=== PATIENT | male | born 1980 | race Caucasian/White ===

== ENCOUNTER 2020-06-19 19:32 | Emergency (ER) | payer SELFPAY ==
[2020-06-19 19:50] VITALS: BP 104/67
--- NOTE | 2020-06-19 20:54 | ER Document Report ---
ED Medical Screen (RME) - General Chief Complaint: Medical Complaint Stated Complaint: ALLERGIC REACTION TO ANTIBIOTIC/EAR SWELLING Time Seen by Provider: 06/19/20 20:43 Mode of Arrival: Ambulatory Information source: Patient Notes: 39-year-old male presents to ED for swelling right ear. He states that he had an allergic reaction to doxycycline for years ago and somebody is been him doxycycline so now he has a swollen right ear. He states he goes up to his service to get into his ear and makes his ear swollen. He does have right swollen external ear. He states he did have a medical history of a fractured left leg with surgery where they removed the patella and appendectomy. He states he smokes a half a pack a day drinks once a month and does occasionally smoke marijuana. I have greeted and performed a rapid initial assessment of this patient. A comprehensive ED assessment and evaluation of the patient, analysis of test results and completion of medical decision making process will be conducted by an additional ED providers. Past Medical History - Social History Frequency of alcohol use: Rare Drug Abuse: Marijuana Physical Exam - Vital signs Vitals: Temp Pulse Resp BP Pulse Ox 98.4 F 109 H 16 104/67 97 06/19/20 19:48 06/19/20 19:48 06/19/20 19:48 06/19/20 19:48 06/19/20 19:48 Course - Vital Signs Vital signs: Temp Pulse Resp BP Pulse Ox 98.4 F 109 H 16 104/67 97 06/19/20 20:37 06/19/20 19:48 06/19/20 19:48 06/19/20 19:48 06/19/20 19:48
== END 2020-06-19 22:14 | disposition left against medical advice (07) ==
LOC: ER 19:32
DX: Z53.20 Procedure and treatment not carried out because of patient's decision for unspecified reasons (principal); T78.40XA Allergy, unspecified, initial encounter; R22.0 Localized swelling, mass and lump, head
CPT/HCPCS: 99281